=== PATIENT | female | born 1995 | race Caucasian/White ===

== ENCOUNTER 2017-01-17 08:41 | Day surgery (SDC) | payer MEDICAID ==
[~2017-01-17 08:41] MED LIST: PROPOFOL INJ 200 MG/20 ML VIAL IV ONE
[2017-01-17 11:05] VITALS: BP 112/66
--- NOTE | 2017-01-17 13:19 | Operative Report ---
Operative Report DATE OF SURGERY: 01/17/17 Operative Report: The risks, benefits and alternatives of the procedure including risks of bleeding, perforation requiring surgery are explained to the patient detail and informed consent was obtained. Patient was taken back to the endoscopy suite and placed in the left, lateral decubital position. Timeout was called. Propofol medications administered. A rectal examination is done which did not reveal any masses, tears or fissures. An Olympus videoscope was inserted into the patient's rectum. It is carefully advanced all the way to the cecum. The cecum was identified by the usual anatomical landmarks of the ileocecal valve as well as the appendiceal office. Photodocumentation is obtained. Prep is good. The scope was then sequentially pulled back via the various segments of the colon including the ascending colon, hepatic flexure, transverse colon, splenic flexure, descending colon and finding to the rectosigmoid portions of the colon. Retroflexion maneuvers performed. The risks benefits and alternatives of the procedure explained to the patient in detail and informed consent is obtained.A GIF Olympus video scope was inserted into the patient's mouth and hypopharynx, the esophagus is identified intubated and insufflated, the scope was then advanced through the esophagus stomach and duodenum, retroflexion maneuver is done, the esophagus stomach and first and second portions of the duodenum examined PREOPERATIVE DIAGNOSIS: Abdominal pain, change in bowel habits. Blood in stool POSTOPERATIVE DIAGNOSIS: Mild ileitis status post biopsy. Gastritis status post biopsy rule out Helicobacter pylori OPERATION: Colonoscopy with biopsy. EGD with biopsy SURGEON: TYLER CLAUDIO ANESTHESIA: LMAC TISSUE REMOVED OR ALTERED: As noted above. COMPLICATIONS: None. ESTIMATED BLOOD LOSS: None. INTRAOPERATIVE FINDINGS: As discussed above. PROCEDURE: Patient tolerated the procedure well. No immediate postprocedure complications are noted. Patient discharged in good condition. Discharge date 01/17/2017. Discharge diet: Regular. Discharge activity: Regular. 2-3 week follow-up to discuss findings. Patient is instructed to call the office or proceed to the emergency room should there be any further problems or questions. We will wait on pathology.
== END 2017-01-17 11:00 | disposition home or self-care (01) ==
LOC: END 08:41
PROVIDERS: ATTEND Internal Medicine Gastroenterology
PROC: 0DB68ZX Excision of Stomach, Via Natural or Artificial Opening Endoscopic, Diagnostic (ICD-10-PCS; principal; 2017-01-17 11:00)
PROC: 0DBB8ZX Excision of Ileum, Via Natural or Artificial Opening Endoscopic, Diagnostic (ICD-10-PCS; 2017-01-17 11:00)
DX: K52.9 Noninfective gastroenteritis and colitis, unspecified (principal); K29.50 Unspecified chronic gastritis without bleeding; K92.1 Melena; E66.9 Obesity, unspecified; Z68.43 Body mass index [BMI] 50.0-59.9, adult
CPT/HCPCS: 43239; 45380; 88305 ×2; J2704; 740

== ENCOUNTER 2018-06-05 11:40 | Emergency (ER) | payer MEDICAID ==
[2018-06-05] MEDS ORDERED: ONDANSETRON 4 MG TAB.RAPDIS PO ONE (14:31)
--- NOTE | 2018-06-05 14:32 | ER Document Report ---
ED Medical Screen (RME) - General Chief Complaint: Nausea Stated Complaint: NECK PAIN/NAUSEA Time Seen by Provider: 06/05/18 14:28 Primary Care Provider: DYAN CLIFTON NP [Primary Care Provider] - Follow up as needed Mode of Arrival: Ambulatory Information source: Patient Notes: 22-year-old female presented to ED for complaint of sore throat disease nausea vomiting and headache for the last several days. She states she was recently seen by her doctor and told she had an elevated TSH and started on Synthroid. She states within 2 days she was dizzy nauseated vomiting headache and sore throat. She does have a previous history of a tonsils and adenoids removed gallbladder pilonidal cyst removal. She is started on Bactrim for a abscess to her like this. She does not smoke drink or do any drugs. She does not work and she lives with her family. Patient is alert and oriented respirations regular and unlabored speaking in full sentences walks with a even steady gait. I have greeted and performed a rapid initial assessment of this patient. A comprehensive ED assessment and evaluation of the patient, analysis of test results and completion of medical decision making process will be conducted by an additional ED providers. TRAVEL OUTSIDE OF THE [place] IN LAST 30 DAYS: No - Related Data Allergies/Adverse Reactions: codeine [Codeine] Adverse Reaction (Mild, Verified 06/05/18 11:42) headaches Past Medical History - Social History Chew tobacco use (# tins/day): No Frequency of alcohol use: None Drug Abuse: None - Past Medical History Cardiac Medical History: Denies: Hx Coronary Artery Disease, Hx Heart Attack, Hx Hypertension Pulmonary Medical History: Reports: Hx Asthma Denies: Hx Bronchitis, Hx COPD, Hx Pneumonia Neurological Medical History: Denies: Hx Cerebrovascular Accident, Hx Seizures Renal/ Medical History: Denies: Hx Peritoneal Dialysis Musculoskeltal Medical History: Denies Hx Arthritis Skin Medical History: Reports Hx Cellulitis, Reports Hx MRSA Psychiatric Medical History: Reports: Hx Depression Infectious Medical History: Reports: Hx MRSA Past Surgical History: Reports: Hx Adenoidectomy, Hx Cholecystectomy, Hx Tonsillectomy - Immunizations Immunizations up to date: Yes Hx Diphtheria, Pertussis, Tetanus Vaccination: Yes Physical Exam - Vital signs Vitals: Temp Pulse Resp BP Pulse Ox 98.9 F 85 15 141/78 H 98 06/05/18 11:55 06/05/18 11:55 06/05/18 11:55 06/05/18 11:55 06/05/18 11:55 Course - Vital Signs Vital signs: Temp Pulse Resp BP Pulse Ox 98.9 F 85 15 141/78 H 98 06/05/18 11:55 06/05/18 11:55 06/05/18 11:55 06/05/18 11:55 06/05/18 11:55 Doctor's Discharge - Discharge Referrals: DYAN CLIFTON NP [Primary Care Provider] - Follow up as needed
[2018-06-05 15:40] LABS: ABSOLUTE BASOPHILS # (AUTO) 0.1 10^3/uL (0.0-0.2); ABSOLUTE EOSINOPHILS # (AUTO) 0.3 10^3/uL (0.0-0.6); ABSOLUTE MONOCYTES (AUTO) 0.4 10^3/uL (0.1-1.4); ABSOLUTE NEUT (AUTO) 4.6 10^3/uL (1.7-8.2); BASOPHILS % (AUTO) 0.8 % (0-2); EOSINOPHILS % (AUTO) 3.5 % (0-6); HEMATOCRIT 38.8 % (36.0-47.0); HEMOGLOBIN 13.4 g/dL (12.0-15.5); LYMPHOCYTES % (AUTO) 27.2 % (13-45); MEAN CORPUSCULAR HEMOGLOBIN 29.4 pg (27.0-33.4); MEAN CORPUSCULAR HGB CONC 34.4 g/dL (32.0-36.0); MEAN CORPUSCULAR VOLUME 85 fl (80-97); MONOCYTES % (AUTO) 5.1 % (3-13); PLATELET COUNT 346 10^3/uL (150-450); RED BLOOD COUNT 4.55 10^6/uL (3.72-5.28); RED CELL DISTRIBUTION WIDTH 13.8 % (11.5-14.0); SEGMENTED NEUTROPHILS % (AUTO) 63.4 % (42-78); TOTAL CELLS COUNTED % (AUTO) 100 %; WHITE BLOOD COUNT 7.3 10^3/uL (4.0-10.5)
[2018-06-05 15:59] LABS: ALANINE AMINOTRANSFERASE 21 U/L (9-52); ALBUMIN 4.8 g/dL (3.5-5.0); ALKALINE PHOSPHATASE 93 U/L (38-126); ANION GAP 12 (5-19); ASPARTATE AMINO TRANSFERASE 25 U/L (14-36); BILIRUBIN,DIRECT 0.3 mg/dL (0.0-0.4); BILIRUBIN,TOTAL 0.6 mg/dL (0.2-1.3); BLOOD UREA NITROGEN 11 mg/dL (7-20); CALCIUM 9.9 mg/dL (8.4-10.2); CARBON DIOXIDE 25 mmol/L (22-30); CHLORIDE 104 mmol/L (98-107); GLUCOSE 91 mg/dL (75-110); POTASSIUM 4.2 mmol/L (3.6-5.0); SODIUM 140.8 mmol/L (137-145); TOTAL PROTEIN 7.5 g/dL (6.3-8.2)
[2018-06-05 16:14] LABS: APPEARANCE,URINE CLOUDY; BILIRUBIN,URINE NEGATIVE (NEGATIVE); CALCIUM OXALATE CRYSTALS,URINE FEW /HPF; COLOR,URINE YELLOW; GLUCOSE, URINE NEGATIVE (NEGATIVE); KETONES,URINE TRACE mg/dL (NEGATIVE); LEUKOCYTE ESTERASE,URINE TRACE (NEGATIVE); NITRITE,URINE NEGATIVE (NEGATIVE); PROTEIN,URINE NEGATIVE (NEGATIVE); URINE SPECIFIC GRAVITY 1.026
[2018-06-05 16:21] LABS: FREE T3 3.39 pg/mL (2.77-5.27); FREE T4 (FREE THYROXINE) 1.18 ng/dL (0.78-2.19)
[2018-06-05 16:34] LABS: THYROID STIMULATING HORMONE 3.2 uIU/mL (0.47-4.68)
--- NOTE | 2018-06-05 17:03 | ER Document Report ---
ED General - General Chief Complaint: Nausea Stated Complaint: NECK PAIN/NAUSEA Time Seen by Provider: 06/05/18 14:28 Primary Care Provider: DYAN CLIFOTN, [employer] WE[employer] MACHINE OPERATOR [NURSE PRACTITIONER] - Follow up as needed Mode of Arrival: Ambulatory Information source: Patient, Parent TRAVEL OUTSIDE OF THE [place] IN LAST 30 DAYS: No - HPI Onset: Other - 22-year-old female with a history of hypothyroidism as well as bipolar disorder on multiple medications who recently started Synthroid on Tuesday stating that she felt like she was having some soreness in the throat thereafter over the last 3 days. Nothing is made it better or worse, does note some soreness in the throat. No shortness of breath, chest pain, abdominal pain, diarrhea constipation dysuria. - Related Data Allergies/Adverse Reactions: codeine [Codeine] Adverse Reaction (Mild, Verified 06/05/18 11:42) headaches Past Medical History - General Information source: Patient, Parent - Social History Smoking Status: Never Smoker Chew tobacco use (# tins/day): No Frequency of alcohol use: None Drug Abuse: None Family History: Arthritis, CAD, CVA, DM, Hyperlipidemia, Hypertension, Malignancy, Thyroid Disfunction Patient has suicidal ideation: No Patient has homicidal ideation: No - Past Medical History Cardiac Medical History: Denies: Hx Coronary Artery Disease, Hx Heart Attack, Hx Hypertension Pulmonary Medical History: Reports: Hx Asthma Denies: Hx Bronchitis, Hx COPD, Hx Pneumonia Neurological Medical History: Denies: Hx Cerebrovascular Accident, Hx Seizures Renal/ Medical History: Denies: Hx Peritoneal Dialysis Musculoskeletal Medical History: Denies Hx Arthritis Skin Medical History: Reports Hx Cellulitis, Reports Hx MRSA Psychiatric Medical History: Reports: Hx Depression Infectious Medical History: Reports: Hx MRSA Past Surgical History: Reports: Hx Adenoidectomy, Hx Cholecystectomy, Hx Tonsillectomy - Immunizations Immunizations up to date: Yes Hx Diphtheria, Pertussis, Tetanus Vaccination: Yes Review of Systems - Review of Systems -: Yes All other systems reviewed and negative Physical Exam - Vital signs Vitals: Temp Pulse Resp BP Pulse Ox 98.9 F 85 15 141/78 H 98 06/05/18 11:55 06/05/18 11:55 06/05/18 11:55 06/05/18 11:55 06/05/18 11:55 Interpretation: Normal - General General appearance: Appears well, Alert - HEENT Head: Normocephalic, Atraumatic Eyes: Normal Pupils: PERRL - Respiratory Respiratory status: No respiratory distress Chest status: Nontender Breath sounds: Normal Chest palpation: Normal - Cardiovascular Rhythm: Regular Heart sounds: Normal auscultation Murmur: No - Abdominal Inspection: Normal Distension: No distension Bowel sounds: Normal Tenderness: Nontender Organomegaly: No organomegaly - Back Back: Normal, Nontender - Extremities General upper extremity: Normal inspection, Nontender, Normal color, Normal ROM, Normal temperature General lower extremity: Normal inspection, Nontender, Normal color, Normal ROM, Normal temperature, Normal weight bearing. No: Amado's sign - Neurological Neuro grossly intact: Yes Cognition: Normal Orientation: AAOx4 [place] Coma Scale Eye Opening: Spontaneous Max Coma Scale Verbal: Oriented [place] Coma Scale Motor: Obeys Commands [place] Coma Scale Total: 15 Speech: Normal Motor strength normal: LUE, RUE, LLE, RLE Sensory: Normal - Psychological Associated symptoms: Normal affect, Normal mood - Skin Skin Temperature: Warm Skin Moisture: Dry Skin Color: Normal Course - Re-evaluation Re-evalutation: Well-appearing 22-year-old female who thought that her Synthroid may be causing issues with fullness in the throat. On examination she has shotty cervical lymphadenopathy and some erythema in the oropharynx likely she is developing an upper respiratory tract infection. Patient had labs drawn through triage which demonstrate a normal TSH and free T4. Her markers for infection are reassuring her work of breathing on room air is normal she will be discharged with return precautions and encouragement to continue to take the medication as previously prescribed. - Vital Signs Vital signs: Temp Pulse Resp BP Pulse Ox 97.9 F 80 16 129/77 H 100 06/05/18 17:34 06/05/18 17:34 06/05/18 17:34 06/05/18 17:34 06/05/18 17:34 - Laboratory Result Diagrams: 06/05/18 15:22 06/05/18 15:22 Laboratory results interpreted by me: 06/05/18 15:22 Urine Ketones TRACE H Urine Urobilinogen 2.0 H Ur Leukocyte Esterase TRACE H Discharge - Discharge Clinical Impression: Sore throat, Neck pain Condition: Good Disposition: HOME, SELF-CARE Instructions: Hypothyroidism ([facility]) Additional Instructions: Your seen today in the emergency department for your sore throat. You had evaluation including a physical exam as well as blood test. I do not believe that your sore throat is a result of the medications you are taking, I think it is likely an early viral illness. Use Tylenol and Motrin as needed for your sore throat. Continue to take your Synthroid. Contact your physician for a follow-up this week to double check how things are going with your sore throat. Return in case of worsening shortness of breath inability to breathe or worsening lightheadedness. Referrals: DYAN CLIFTON, [employer] WE[employer]ING MACHINE OPERATOR [NURSE PRACTITIONER] - Follow up as needed
[2018-06-05 17:35] VITALS: BP 129/77
== END 2018-06-05 17:34 | disposition home or self-care (01) ==
LOC: ER 11:40
DX: J02.9 Acute pharyngitis, unspecified (principal); R59.0 Localized enlarged lymph nodes; M54.2 Cervicalgia; E03.9 Hypothyroidism, unspecified; J45.909 Unspecified asthma, uncomplicated
CPT/HCPCS: 99283; 36415; 84439; 84443; 84703; 85025; 80053; 81001; 84481; S0119

== ENCOUNTER 2018-11-22 07:38 | Day surgery (SDC) | payer MEDICAID, OTHER ==
[2018-11-22] MEDS ORDERED: PROPOFOL INJ 200 MG/20 ML VIAL IV ONE (09:14)
[2018-11-22] MEDS ORDERED: LIDOCAINE 2% INJ (20 MG/ML) 20 ML MDV ONE (09:17)
--- NOTE | 2018-11-22 10:41 | Operative Report ---
Operative Report DATE OF SURGERY: 11/22/18 Operative Report: The risks benefits and alternatives of the procedure explained to the patient in detail and informed consent is obtained.A GIF Olympus video scope was inserted into the patient's mouth and hypopharynx ,the esophagus is identified intubated and insufflated, the scope was then advanced through the esophagus stomach and duodenum, retroflexion maneuver is done, the esophagus stomach and first and second portions of the duodenum examined. PREOPERATIVE DIAGNOSIS: Epigastric pain rule out peptic ulcer disease POSTOPERATIVE DIAGNOSIS: Gastritis status post biopsy rule out Helicobacter pylori OPERATION: EGD with biopsy SURGEON: TYLER CLAUDIO ANESTHESIA: LMAC TISSUE REMOVED OR ALTERED: As noted above. COMPLICATIONS: None. ESTIMATED BLOOD LOSS: None. INTRAOPERATIVE FINDINGS: As noted above. PROCEDURE: Patient tolerated the procedure well. No immediate postprocedure complications are noted. Patient is discharged in good condition. Discharge date 11/22/2018. Discharge diet: Regular. Discharge activity: Regular. 2 to 3-week follow-up to discuss findings. Patient is instructed to call the office or proceed to the emergency room should there be any further problems or questions. Wait on the pathology.
[2018-11-22 11:41] VITALS: BP 131/86
== END 2018-11-22 11:44 | disposition home or self-care (01) ==
LOC: OROUT 07:38
PROVIDERS: ATTEND Internal Medicine Gastroenterology
DX: K29.50 Unspecified chronic gastritis without bleeding (principal); Z13.89 Encounter for screening for other disorder; E78.5 Hyperlipidemia, unspecified; E66.9 Obesity, unspecified; Z68.43 Body mass index [BMI] 50.0-59.9, adult
CPT/HCPCS: 43239; 81025; 88305 ×2; 00731; J3490; J2704; 731

== ENCOUNTER 2019-01-18 09:19 | Emergency (ER) | payer OTHER ==
[2019-01-18 10:15] LABS: APPEARANCE,URINE SLIGHTLY-CLOUDY; BILIRUBIN,URINE NEGATIVE (NEGATIVE); GLUCOSE, URINE NEGATIVE (NEGATIVE); KETONES,URINE TRACE mg/dL (NEGATIVE); LEUKOCYTE ESTERASE,URINE NEGATIVE (NEGATIVE); NITRITE,URINE NEGATIVE (NEGATIVE); PROTEIN,URINE 30 mg/dL (NEGATIVE); URINE SPECIFIC GRAVITY 1.033
[2019-01-18 10:41] LABS: ADD MANUAL MICROSCOPIC YES
[2019-01-18 10:42] LABS: COLOR,URINE YELLOW
[2019-01-18 10:43] LABS: BACTERIA,URINE 1+ /HPF; RBC,URINE 0-1 /HPF
[2019-01-18] MEDS ORDERED: AZITHROMYCIN 250 MG TABLET PO ONE (11:07)
[2019-01-18] MEDS ORDERED: CEFTRIAXONE INJ 250 MG VIAL IM ONE (11:07)
--- NOTE | 2019-01-18 11:10 | RADIOLOGY REPORT (SQ) ---
EXAM DESCRIPTION: U/S NON OB PEL TV W/DOPPLER COMPLETED DATE/TIME: 01/18/2019 10:52 am REASON FOR STUDY: BL pelvic pain COMPARISON: None. TECHNIQUE: Dynamic and static grayscale images acquired of the pelvis via transvaginal approach and recorded on PACS. Additional selected color Doppler and spectral images recorded. LIMITATIONS: None. FINDINGS: UTERUS: Contour normal. No mass. ENDOMETRIAL STRIPE: No focal or generalized thickening. No masses. CERVIX: No nabothian cysts. RIGHT OVARY AND DOPPLER: Normal size. No worrisome masses. Multiple small follicles. Normal arteria l vascular flow without evidence for torsion. LEFT OVARY AND DOPPLER: Normal size. No worrisome masses. Multiple small follicles. Normal arterial vascular flow without evidence for torsion. FREE FLUID: None noted. OTHER: No other significant finding. MEASUREMENTS: UTERUS: 5.7 x 3.6 x 2.5 cm ENDOMETRIAL STRIPE: 5 mm RIGHT OVARY: 2.8 x 2.7 x 2.5 cm LEFT OVARY: 2.4 x 1.9 x 2.7 cm IMPRESSION: No ultrasound findings of the pelvis to explain pain. There are multiple small bilatera l ovarian follicles. Consider CT or MRI to further evaluate unexplained pain. TECHNICAL DOCUMENTATION: JOB ID: [id number] [employer]- All Rights Reserved Reading location - IP/workstation name: [email or web address]
--- NOTE | 2019-01-18 11:10 | ER Document Report ---
ED General - General Chief Complaint: Vaginal Discharge Stated Complaint: VAGINAL DISCHARGE,ABDOMINAL PAIN Time Seen by Provider: 01/18/19 09:53 Primary Care Provider: KRISSY VENTURA MD [Primary Care Provider] - Follow up as needed Notes: Patient is a morbidly obese 23-year-old female presents to the emergency department for vaginal discharge. States she noticed a grayish vaginal discharge starting last night. Patient's denying any itch or malodor. Patient is complaining of bilateral lower pelvic pain. Patient's denying any vomiting, fevers, dysuria. States her last menstrual period was 01/08/2019. TRAVEL OUTSIDE OF THE [place] IN LAST 30 DAYS: No - Related Data Allergies/Adverse Reactions: codeine [Codeine] Adverse Reaction (Mild, Verified 01/18/19 09:21) headaches Past Medical History - General Information source: Patient - Social History Smoking Status: Never Smoker Chew tobacco use (# tins/day): No Frequency of alcohol use: None Drug Abuse: None Family History: Arthritis, CAD, CVA, DM, Hyperlipidemia, Hypertension, Malignancy, Thyroid Disfunction Patient has suicidal ideation: No Patient has homicidal ideation: No - Past Medical History Cardiac Medical History: Denies: Hx Coronary Artery Disease, Hx Heart Attack, Hx Hypertension Pulmonary Medical History: Reports: Hx Asthma Denies: Hx Bronchitis, Hx COPD, Hx Pneumonia Neurological Medical History: Denies: Hx Cerebrovascular Accident, Hx Seizures Renal/ Medical History: Denies: Hx Peritoneal Dialysis Musculoskeletal Medical History: Denies Hx Arthritis Skin Medical History: Reports Hx Cellulitis, Reports Hx MRSA Psychiatric Medical History: Reports: Hx Depression Infectious Medical History: Reports: Hx MRSA Past Surgical History: Reports: Hx Adenoidectomy, Hx Cholecystectomy, Hx Tonsillectomy - &adenoids - Immunizations Immunizations up to date: Yes Hx Diphtheria, Pertussis, Tetanus Vaccination: Yes Review of Systems - Review of Systems Constitutional: denies: Fever EENT: No symptoms reported Cardiovascular: No symptoms reported Respiratory: No symptoms reported Gastrointestinal: See HPI Genitourinary: See HPI Female Genitourinary: See HPI Musculoskeletal: No symptoms reported Skin: No symptoms reported Hematologic/Lymphatic: No symptoms reported Neurological/Psychological: No symptoms reported Physical Exam - Vital signs Vitals: Temp Pulse Resp BP Pulse Ox 97.7 F 101 H 20 130/78 H 100 01/18/19 09:23 01/18/19 09:23 01/18/19 09:23 01/18/19 09:23 01/18/19 09:23 - Notes Notes: GENERAL: Alert, interacts well. No acute distress. HEAD: Normocephalic, atraumatic. EYES: Pupils equal, round, and reactive to light. Extraocular movements intact. ENT: Oral mucosa moist, tongue midline. NECK: Full range of motion. Supple. Trachea midline. LUNGS: Clear to auscultation bilaterally, no wheezes, rales, or rhonchi. No respiratory distress. HEART: Regular rate and rhythm. No murmur ABDOMEN: Soft, slight pelvic pain noted bilaterally. non-distended. Bowel sounds present in all 4 quadrants. EXTREMITIES: Moves all 4 extremities spontaneously. No edema, normal radial and dorsalis pedis pulses bilaterally. No cyanosis. BACK: no cervical, thoracic, lumbar midline tenderness. No saddle anesthesia, normal distal neurovascular exam. NEUROLOGICAL: Alert and oriented x3. Normal speech. cranial nerves II through XII grossly intact. PSYCH: Normal affect, normal mood. SKIN: Warm, dry, normal turgor. No rashes or lesions noted. Genitalia: Benjamin PCT tax manager cpa, malodorous white discharge noted in the cul-de-sac, no cervical motion tenderness noted, no adnexal tenderness noted bilaterally. Course - Re-evaluation Re-evalutation: 01/18/19 12:54 Laboratory 01/18/19 01/18/19 01/18/19 09:54 09:54 11:05 Urine Color YELLOW Urine Appearance SLIGHTLY-CLOUDY Urine pH 5.0 Ur Specific [place] 1.033 Urine Protein 30 H Urine Glucose (UA) NEGATIVE Urine Ketones TRACE H Urine Blood NEGATIVE Urine Nitrite NEGATIVE Urine Bilirubin NEGATIVE Urine Urobilinogen 2.0 H Ur Leukocyte Esterase NEGATIVE Urine RBC 0-1 Urine WBC 10-20 Ur Squamous Epith Cells MANY Urine Bacteria 1+ Urine Mucus 4+ Urine Ascorbic Acid NEGATIVE Urine HCG, Qual NEGATIVE Trichomonas (Wet Prep) NO TRICHOMONAS SEEN Vaginal WBC 2+ WBCS SEEN Vaginal RBC RARE RBCS SEEN Vaginal Yeast NO YEAST SEEN Patient's wet mount shows no signs of yeast, no signs of bacterial vaginosis, no signs of trichomonas. Only 2+ WBCs seen. Patient has been treated for gonorrhea and chlamydia prophylactically. Testing results still pending. At this time will discharge with return precautions and follow-up recommendations. Verbal discharge instructions given a the bedside and opportunity for questions given. Medication warnings reviewed. Patient is in agreement with this plan and has verbalized understanding of return precautions and the need for primary care follow-up in the next 24-72 hours. This medical record was dictated with voice recognizing software. There may be grammatical, syntax errors that are unintended. - Vital Signs Vital signs: Temp Pulse Resp BP Pulse Ox 97.7 F 101 H 20 130/78 H 100 01/18/19 09:23 01/18/19 09:23 01/18/19 09:23 01/18/19 09:23 01/18/19 09:23 - Laboratory Laboratory results interpreted by me: 01/18/19 09:54 Urine Protein 30 H Urine Ketones TRACE H Urine Urobilinogen 2.0 H Discharge - Discharge Clinical Impression: Vaginal discharge Condition: Stable Disposition: HOME, SELF-CARE Instructions: Gonorrhea ([facility]), Chlamydia ([facility]) Additional Instructions: As we discussed you have been seen and treated in the emergency department for your vaginal discharge. Your gonorrhea and Chlamydia testing is still pending. Please call [phone] for your culture results. You have been prophylactically treated for both diseases. Your wet mount shows no signs of bacterial vaginosis or yeast. Please follow-up with your primary care provider in the next 24 to 48 hours. Return to the emergency room for any further concerns. Forms: Return to Work Referrals: KRISSY VENTURA MD [Primary Care Provider] - Follow up as needed
[2019-01-18] MEDS ORDERED: LIDOCAINE 1% INJ-PF (10 MG/ML) 30 ML SDV ONE (11:30)
[2019-01-18 11:44] LABS: RBCS (WET MOUNT) RARE RBCS SEEN; T.VAGINALIS (WET MOUNT) NO TRICHOMONAS SEEN; WBCS (WET MOUNT) 2+ WBCS SEEN; YEAST (WET MOUNT) NO YEAST SEEN
[2019-01-18 13:14] VITALS: BP 128/75
[2019-01-18 13:15] LABS: CHLAM PCR NOT DETECTED (NOT DETECT)
== END 2019-01-18 13:13 | disposition home or self-care (01) ==
LOC: ER 09:19
DX: N89.8 Other specified noninflammatory disorders of vagina (principal); E66.01 Morbid (severe) obesity due to excess calories; R10.30 Lower abdominal pain, unspecified; R10.2 Pelvic and perineal pain; Z86.14 Personal history of Methicillin resistant Staphylococcus aureus infection; Z88.6 Allergy status to analgesic agent; Z90.49 Acquired absence of other specified parts of digestive tract
CPT/HCPCS: 99284; 96372; 87086; 87210; 81025; 81001; 87491; 87591; 76830; 93976; J3490; J0696

== ENCOUNTER 2019-02-22 00:44 | Emergency (ER) | payer OTHER ==
[2019-02-22 00:53] VITALS: BP 142/88
[2019-02-22] MEDS ORDERED: ONDANSETRON 4 MG TAB.RAPDIS PO ONE (01:40)
[2019-02-22 01:55] LABS: ABSOLUTE BASOPHILS # (AUTO) 0.1 10^3/uL (0.0-0.2); ABSOLUTE EOSINOPHILS # (AUTO) 0.2 10^3/uL (0.0-0.6); ABSOLUTE LYMPHOCYTES (AUTO) 3.9 10^3/uL (0.5-4.7); ABSOLUTE MONOCYTES (AUTO) 0.4 10^3/uL (0.1-1.4); BASOPHILS % (AUTO) 0.6 % (0-2); EOSINOPHILS % (AUTO) 1.7 % (0-6); HEMATOCRIT 38.9 % (36.0-47.0); HEMOGLOBIN 13.1 g/dL (12.0-15.5); LYMPHOCYTES % (AUTO) 37.2 % (13-45); MEAN CORPUSCULAR HEMOGLOBIN 29.8 pg (27.0-33.4); MEAN CORPUSCULAR HGB CONC 33.6 g/dL (32.0-36.0); MEAN CORPUSCULAR VOLUME 89 fl (80-97); MONOCYTES % (AUTO) 4.1 % (3-13); PLATELET COUNT 370 10^3/uL (150-450); RED CELL DISTRIBUTION WIDTH 12.6 % (11.5-14.0); SEGMENTED NEUTROPHILS % (AUTO) 56.4 % (42-78); TOTAL CELLS COUNTED % (AUTO) 100 %; WHITE BLOOD COUNT 10.6 10^3/uL (4.0-10.5)
[2019-02-22 02:18] LABS: ALBUMIN 4.4 g/dL (3.5-5.0); ALKALINE PHOSPHATASE 72 U/L (38-126); ANION GAP 10 (5-19); ASPARTATE AMINO TRANSFERASE 19 U/L (14-36); BILIRUBIN,DIRECT 0.2 mg/dL (0.0-0.4); BILIRUBIN,TOTAL 0.5 mg/dL (0.2-1.3); BLOOD UREA NITROGEN 13 mg/dL (7-20); CARBON DIOXIDE 25 mmol/L (22-30); CHLORIDE 106 mmol/L (98-107); CREATINE KINASE 42 U/L (30-135); GLUCOSE 93 mg/dL (75-110); POTASSIUM 4.2 mmol/L (3.6-5.0); TOTAL PROTEIN 7.1 g/dL (6.3-8.2)
[2019-02-22 02:24] LABS: APPEARANCE,URINE SLIGHTLY-CLOUDY; BILIRUBIN,URINE NEGATIVE (NEGATIVE); COLOR,URINE YELLOW; GLUCOSE, URINE NEGATIVE (NEGATIVE); KETONES,URINE NEGATIVE (NEGATIVE); LEUKOCYTE ESTERASE,URINE NEGATIVE (NEGATIVE); NITRITE,URINE NEGATIVE (NEGATIVE); PROTEIN,URINE NEGATIVE (NEGATIVE); URINE SPECIFIC GRAVITY 1.023; UROBILINOGEN,URINE NEGATIVE mg/dL (<2.0)
--- NOTE | 2019-02-22 02:25 | ER Document Report ---
Entered by KYLER CABRERA SCRIBE 02/22/19 0148 Acting as scribe for:JODIE COTTON MD ED GI/ - General Chief Complaint: Abdominal Pain Stated Complaint: SHORT OF BREATH Time Seen by Provider: 02/22/19 01:27 Primary Care Provider: KRISSY VENTURA MD [Primary Care Provider] - Follow up as needed Mode of Arrival: Ambulatory Information source: Patient Notes: Patient is a 23-year-old female that presents to the emergency department today with complaints of abdominal pain that began 2 to 3 hours prior to arrival. Patient states she has been nauseated all day but the pain started just prior to arrival. Patient states her last menstrual period was about 2 weeks ago. Patient states she has been having normal bowel movements the last few days, stating she had a normal one tonight prior to arrival. Patient denies any fevers. TRAVEL OUTSIDE OF THE [place] IN LAST 30 DAYS: No - Related Data Allergies/Adverse Reactions: codeine [Codeine] Adverse Reaction (Mild, Verified 01/18/19 09:21) headaches Past Medical History - General Information source: Patient - Social History Smoking Status: Never Smoker Cigarette use (# per day): No Frequency of alcohol use: None Drug Abuse: None Lives with: Family Family History: Reviewed & Not Pertinent, Arthritis, CAD, CVA, DM, Hyperlipidemia, Hypertension, Malignancy, Thyroid Disfunction Patient has suicidal ideation: No Patient has homicidal ideation: No Pulmonary Medical History: Reports: Hx Asthma Endocrine Medical History: Reports: Hx Hypothyroidism Skin Medical History: Reports Hx Cellulitis, Reports Hx MRSA Psychiatric Medical History: Reports: Hx Depression Infectious Medical History: Reports: Hx MRSA Past Surgical History: Reports: Hx Adenoidectomy, Hx Cholecystectomy, Hx To nsillectomy - Immunizations Immunizations up to date: Yes Hx Diphtheria, Pertussis, Tetanus Vaccination: Yes Review of Systems - Review of Systems Constitutional: denies: Fever EENT: No symptoms reported Cardiovascular: No symptoms reported Respiratory: No symptoms reported Gastrointestinal: See HPI, Abdominal pain, Nausea Genitourinary: No symptoms reported Female Genitourinary: No symptoms reported Musculoskeletal: No symptoms reported Skin: No symptoms reported Hematologic/Lymphatic: No symptoms reported Neurological/Psychological: No symptoms reported -: Yes All other systems reviewed and negative Physical Exam - Vital signs Vitals: Temp Pulse Resp BP Pulse Ox 98 F 90 18 142/88 H 100 02/22/19 00:49 02/22/19 00:49 02/22/19 00:49 02/22/19 00:49 02/22/19 00:49 - Notes Notes: Physical Exam: General: Alert, morbidly obese. HEENT: Normocephalic. Atraumatic. PERRL. Extraocular movements intact. Oropharynx clear. Neck: Supple. Non-tender. Respiratory: No respiratory distress. Clear and equal breath sounds bilaterally. Cardiovascular: Regular rate and rhythm. Abdominal: Morbidly obese. Diffuse generalized tenderness to palpation. Incr eased tenderness when abdominal muscles are tensed. No distension. Normal Bowel Sounds. Back: No gross abnormalities. Tenderness with palpation in the lumbar musculature. Extremities: Moves all four extremities. Upper extremities: Normal inspection. Normal ROM. Lower extremities: Normal inspection. No edema. Normal ROM. Neurological: Normal cognition. AAOx4. Normal speech. Psychological: Normal affect. Normal Mood. Skin: Warm. Dry. Normal color. Course - Re-evaluation Re-evalutation: 02/22/19 02:27 Patient's CBC, Chem-12, and urinalysis are all unremarkable. Physical exam is most consistent with muscle strain to the abdominal wall and the low back. - Vital Signs Vital signs: Temp Pulse Resp BP Pulse Ox 98 F 90 18 142/88 H 100 02/22/19 00:49 02/22/19 00:49 02/22/19 00:49 02/22/19 00:49 02/22/19 00:49 - Laboratory Result Diagrams: 02/22/19 01:35 02/22/19 01:35 Laboratory results interpreted by me: 02/22/19 01:35 WBC 10.6 H Discharge - Discharge Clinical Impression: Strain of abdominal muscle Qualifiers: Encounter type: initial encounter Qualified Code(s): S39.011A - Strain of muscle, fascia and tendon of abdomen, initial encounter Strain of lumbar paraspinous muscle Qualifiers: Encounter type: initial encounter Qualified Code(s): S39.012A - Strain of muscle, fascia and tendon of lower back, initial encounter Condition: Stable Disposition: HOME, SELF-CARE Additional Instructions: Muscle Strain: You have strained the muscles in your abdominal wall and low back. This often occurs with strenuous exertion, or during an injury that suddenly stretches the muscle. The seriousness of a strain varies. Some strains heal within days, others cause problems for months. X-rays cannot show a muscle strain. X-rays are taken only if symptoms suggest that a fracture could be present. The usual treatment of a muscle strain is rest. Call the doctor immediately if pain or swelling becomes severe, or if numbness or discoloration develop. Your blood work and urine analysis were unremarkable. The physical exam is most consistent with strain of the muscles in your low back and your abdominal muscle wall. Take the muscle relaxer as prescribed to help ease the discomfort in the abdomen and back muscles. Take Tylenol and ibuprofen or Aleve for pain as needed. Try to limit activity that makes the pain worse. Follow-up with your primary care provider if not improving. RETURN TO THE EMERGENCY ROOM IF ANY NEW OR WORSENING SYMPTOMS. Prescriptions: Cyclobenzaprine HCl [Flexeril 5 mg Tablet] 5 mg PO TID PRN #15 tablet PRN Reason: Forms: Return to Work Referrals: KRISSY VENTURA MD [Primary Care Provider] - Follow up as needed Scribe Attestation: 02/22/19 02:28 I personally performed the services described in the documentation, reviewed and edited the documentation which was dictated to the scribe in my presence, and it accurately records my words and actions. I personally performed the services described in the documentation, reviewed and edited the documentation which was dictated to the scribe in my presence, and it accurately records my words and actions.
[2019-02-22] MEDS ORDERED: CYCLOBENZAPRINE HCL 10 MG TABLET PO ONE (02:44)
[2019-02-22] MEDS ORDERED: NAPROXEN 250 MG TABLET PO ONE ×2 (02:44→03:00)
== END 2019-02-22 03:08 | disposition home or self-care (01) ==
LOC: ER 00:44
DX: S39.011A Strain of muscle, fascia and tendon of abdomen, initial encounter (principal); S39.012A Strain of muscle, fascia and tendon of lower back, initial encounter; X58.XXXA Exposure to other specified factors, initial encounter; R10.9 Unspecified abdominal pain; R10.817 Generalized abdominal tenderness; R11.0 Nausea; E66.01 Morbid (severe) obesity due to excess calories; J45.909 Unspecified asthma, uncomplicated; Z90.49 Acquired absence of other specified parts of digestive tract
CPT/HCPCS: 36415; 82550; 84703; 85025; 80053; 81001; S0119; 99284

== ENCOUNTER 2019-02-22 21:24 | Emergency (ER) | payer OTHER ==
--- NOTE | 2019-02-22 22:24 | ER Document Report ---
ED Medical Screen (RME) - General Chief Complaint: Flank Pain Stated Complaint: RIGHT FLANK PAIN Time Seen by Provider: 02/22/19 22:21 Primary Care Provider: KRISSY VENTURA MD [Primary Care Provider] - Follow up as needed Mode of Arrival: Ambulatory Information source: Patient Notes: 23-year-old female presented to ED for complaint of abdominal pain. She states she was seen this morning for abdominal pain and now it is going on the right abdomen around to the right back mostly on the right flank area. She states that she had blood work and a urine test this morning and was told that it was muscle pain and she was discharged home. She states the pain is worse and is more around to the right back at this time. She states her last menstrual period was beginning of February. She states she was vomiting this morning before she came in. She states she is taken that medication and she is taking Synthroid for hypothyroid. She denies smoking drinking or use of drugs. She is alert oriented respirations regular and unlabored. I have greeted and performed a rapid initial assessment of this patient. A comprehensive ED assessment and evaluation of the patient, analysis of test results and completion of medical decision making process will be conducted by an additional ED providers. TRAVEL OUTSIDE OF THE [place] IN LAST 30 DAYS: No - Related Data Allergies/Adverse Reactions: codeine [Codeine] Adverse Reaction (Mild, Verified 01/18/19 09:21) headaches Past Medical History - Past Medical History Cardiac Medical History: Denies: Hx Coronary Artery Disease, Hx Heart Attack, Hx Hypertension Pulmonary Medical History: Reports: Hx Asthma Denies: Hx Bronchitis, Hx COPD, Hx Pneumonia Neurological Medical History: Denies: Hx Cerebrovascular Accident, Hx Seizures Endocrine Medical History: Reports: Hx Hypothyroidism Renal/ Medical History: Denies: Hx Peritoneal Dialysis Musculoskeltal Medical History: Denies Hx Arthritis Skin Medical History: Reports Hx Cellulitis, Reports Hx MRSA Psychiatric Medical History: Reports: Hx Depression Infectious Medical History: Reports: Hx MRSA Past Surgical History: Reports: Hx Adenoidectomy, Hx Cholecystectomy, Hx Tonsillectomy - Immunizations Immunizations up to date: Yes Hx Diphtheria, Pertussis, Tetanus Vaccination: Yes Physical Exam - Vital signs Vitals: Temp Pulse Resp BP Pulse Ox 97.4 F 91 20 139/91 H 100 02/22/19 22:16 02/22/19 22:16 02/22/19 22:16 02/22/19 22:16 02/22/19 22:16 Course - Vital Signs Vital signs: Temp Pulse Resp BP Pulse Ox 97.4 F 91 20 139/91 H 100 02/22/19 22:16 02/22/19 22:16 02/22/19 22:16 02/22/19 22:16 02/22/19 22:16 Doctor's Discharge - Discharge Referrals: KRISSY VENTURA MD [Primary Care Provider] - Follow up as needed
--- NOTE | 2019-02-22 23:07 | RADIOLOGY REPORT (SQ) ---
EXAM DESCRIPTION: CT ABDOMEN PELVIS WITHOUT IV CONTRAST COMPLETED DATE/TME: 02/22/2019 22:24 CLINICAL HISTORY: 23 years, Female, Right abdominal/flank pain COMPARISON: 12/21/2014 CT TECHNIQUE: 359 Images stored on PACS. All CT scanners at this facility use dose modulation, iterative reconstruction, and/or weight based dosing when appropriate to reduce radiation dose to as low as reasonably achievable (ALARA). [facility]: Dose Right [facility]: CareDose [facility]: Dose Right [facility]: Teradose 4D [facility]: [employer] LIMITATIONS: None. FINDINGS: Visualized lung bases are unremarkable. Osseous structures are grossly intact. Limited evaluation of the liver is unremarkable. The spleen is mildly enlarged at 13 cm. Status post cholecystectomy. The adrenal glands, pancreas, kidneys are unremarkable. Normal appendix. Abundant stool in the colon. No free air or free fluid. Follicular change to the ovaries IMPRESSION: Mild splenomegaly at 13 cm. Abundant stool in the colon TECHNICAL DOCUMENTATION: Quality ID # [id number]: Final reports with documentation of one or more dose reduction techniques (e.g., Automated exposure control, adjustment of the mA and/or kV according to patient size, use of iterative reconstruction technique) copyright 2010 [employer]- All Rights Reserved
[2019-02-23] MEDS ORDERED: KETOROLAC TROMETHAMINE INJ/PF 30 MG/1 ML SDV IV ONE (01:50)
--- NOTE | 2019-02-23 02:17 | ER Document Report ---
ED GI/ - General Chief Complaint: Flank Pain Stated Complaint: RIGHT FLANK PAIN Time Seen by Provider: 02/22/19 22:21 Primary Care Provider: KRISSY VENTURA MD [Primary Care Provider] - Follow up as needed Mode of Arrival: Ambulatory Information source: Patient, Parent TRAVEL OUTSIDE OF THE [place] IN LAST 30 DAYS: No - HPI Patient complains to provider of: Flank pain. No: Abdominal pain, Diarrhea, Dysuria, Feeding tube problem, Cowart catheter problem, Hematuria, Missed/Late menses, Pelvic pain, , Urinary retention, Vaginal bleeding, Vaginal discharge, Vaginal pain, Vomiting, Other Onset: Yesterday Timing/Duration: Gradual. denies: Sudden, Constant, Intermittent, Persistent, Waxing and waning, Better, Worse, Gone Quality of pain: Achy. denies: No pain, Burning, Cramping, Dull, Fullness, Pressure, Sharp, Stabbing, Throbbing, Other Severity at maximum: Moderate Severity in ED: Mild Pain Level: 1 Context: denies: Bad food, Lifting, Out of the country travel, , Recent trauma, Other Location: Right flank. No: Chest pain, Epigastric, LUQ, LLQ, RUQ, RLQ, Left flank, Low back, Suprapubic, Pelvis, Vaginal, Vulvar, Rectal, Other Vaginal bleeding (Compared to normal period): None. denies: Spotting, [employer], Similar, Heavier, Severe, Bright red, Dark brown, Passing clots, Passing tissue Sexual history: denies: Active, Inactive, New partner, Multiple partners, Unprotected intercourse, Rectal penetration, STD exposure, control patch, control pills, Condoms, Depo, IUD Associated symptoms: denies: None, Blood in emesis, Blood in stool, Chest pain, Chills, Coffee ground emesis, Constipation, Diarrhea, Dizzy, Dysuria, Fever, Hard stool, Hematuria, Hurts to breath, Inguinal mass, Lightheaded, Loss of appetite, Nausea, Odor, Painful intercourse, Radiates to back, Radiates to chest, Radiates to vagina, Radiates to shoulder, Shortness of breath, Sweaty, Syncope, Urinary hesitancy, Urinary frequency, Urinary retention, Urinary urgency, Vaginal discharge, Vomiting, Other Exacerbated by: denies: Denies, Supine, Sitting, Standing, Movement, Walking, Coughing, Deep breathing, Food, Other Notes: 02/23/19 02:12 Note patient was seen yesterday for right flank pain at that time labs were all negative including hCG urine it was thought to be contaminated. Tonight patient was complaining of the right same right flank pain especially with movement of her right flank. CT was obtained which showed an enlarged spleen on the left side however otherwise negative. I discussed this with her mom and that she needs to get follow-up for this with her regular doctor a repeat CAT scan in 2 to 3months as she has no pain there now or none in the abdomen I feel like this is probably chronic. - Related Data Allergies/Adverse Reactions: codeine [Codeine] Adverse Reaction (Mild, Verified 01/18/19 09:21) headaches Home Medications: Synthroid. Phentramine Past Medical History - General Information source: Patient - Social History Smoking Status: Never Smoker Family History: Reviewed & Not Pertinent, Arthritis, CAD, CVA, DM, Hyperlipidemia, Hypertension, Malignancy, Thyroid Disfunction Patient has suicidal ideation: No Patient has homicidal ideation: No - Past Medical History Cardiac Medical History: Denies: Hx Coronary Artery Disease, Hx Heart Attack, Hx Hypertension Pulmonary Medical History: Reports: Hx Asthma Denies: Hx Bronchitis, Hx COPD, Hx Pneumonia Neurological Medical History: Denies: Hx Cerebrovascular Accident, Hx Seizures Endocrine Medical History: Reports: Hx Hypothyroidism Renal/ Medical History: Denies: Hx Peritoneal Dialysis Musculoskeletal Medical History: Denies Hx Arthritis Skin Medical History: Reports Hx Cellulitis, Reports Hx MRSA Psychiatric Medical History: Reports: Hx Depression Infectious Medical History: Reports: Hx MRSA Past Surgical History: Reports: Hx Adenoidectomy, Hx Cholecystectomy, Hx Tonsill ectomy - Immunizations Immunizations up to date: Yes Hx Diphtheria, Pertussis, Tetanus Vaccination: Yes Review of Systems - Review of Systems Constitutional: denies: No symptoms reported, See HPI, Chills, Diaphoresis, Fever, Malaise, Weakness, Other, Weight gain, Weight loss, Recent illness Cardiovascular: denies: No symptoms reported, See HPI, Chest pain, Palpitations, Heart racing, Orthopnea, Dyspnea, Syncope, Dizziness, Lightheaded, Edema, Other, Paroxysmal Nocturnal Dysp Genitourinary: Flank pain. denies: No symptoms reported, See HPI, Burning, Dysuria, Discharge, Frequency, Hematuria, Incontinence, Pain, Urgency, Retention, Other Female Genitourinary: denies: No symptoms reported, See HPI, Last menstrual period, , Post menopausal, Heavy/abnormal periods, Irregular period, Vaginal bleeding, Vaginal discharge, Vaginal odor, Painful intercourse, Other -: Yes All other systems reviewed and negative Physical Exam - Vital signs Vitals: Temp Pulse Resp BP Pulse Ox 97.4 F 91 20 139/91 H 100 02/22/19 22:16 02/22/19 22:16 02/22/19 22:16 02/22/19 22:16 02/22/19 22:16 Notes: PHYSICAL EXAMINATION: GENERAL: Well-appearing, well-nourished and in no acute distress. HEAD: Atraumatic, normocephalic. EYES: Pupils equal round and reactive to light, extraocular movements intact, sclera anicteric, conjunctiva are normal. ENT: nares patent, oropharynx clear without exudates. Moist mucous membranes. NECK: Normal range of motion, supple without lymphadenopathy LUNGS: Breath sounds clear to auscultation bilaterally and equal. No wheezes rales or rhonchi. HEART: Regular rate and rhythm without murmurs ABDOMEN: Soft, nontender, normoactive bowel sounds. No guarding, no rebound. No masses appreciated. Back right sided lateral to the CVA area tenderness especially when patient moves her trunk. Distinct CVA tenderness right or left EXTREMITIES: Normal range of motion, no pitting or edema. No cyanosis. NEUROLOGICAL: No focal neurological deficits. Moves all extremities spontaneously and on command. PSYCH: Normal mood, normal affect. SKIN: Warm, Dry, normal turgor, no rashes or lesions noted. Course - Vital Signs Vital signs: Temp Pulse Resp BP Pulse Ox 97.4 F 91 20 139/91 H 100 02/22/19 22:16 02/22/19 22:16 02/22/19 22:16 02/22/19 22:16 02/22/19 22:16 - Laboratory Laboratory results interpreted by me: 02/23/19 02:14 Lab results from less than 24 hours ago were reviewed I discussed with patient and mother that repeating these at this time without fever did not feel they were necessary however I offered them to them they declined. - Diagnostic Test Radiology reviewed: Image reviewed, Reports reviewed - EKG Interpretation by Me EKG shows normal: Sinus rhythm Rate: Normal Discharge - Discharge Clinical Impression: Right flank pain Condition: Good Disposition: HOME, SELF-CARE Instructions: Abdominal Pain ([facility]), Oral Narcotic Medication ([facility]) Additional Instructions: Return if you are worse take your Flexeril for spasms Prescriptions: Hydrocodone/Acetaminophen [[place] 5-325 Tablet] 1 each PO Q6 PRN #10 tablet PRN Reason: Pain Scale Of 3 Referrals: KRISSY VENTURA MD [Primary Care Provider] - Follow up as needed
[2019-02-23 04:11] VITALS: BP 126/62
--- NOTE | 2019-02-23 07:23 | EKG REPORT ---
SEVERITY:- NORMAL ECG - SINUS RHYTHM : Confirmed by: Xavier Lima 23-Feb-2019 07:21:30
== END 2019-02-23 04:00 | disposition home or self-care (01) ==
LOC: ER 21:24
DX: R10.9 Unspecified abdominal pain (principal); J45.909 Unspecified asthma, uncomplicated
CPT/HCPCS: 74176; 93005; 93010; J1885

== ENCOUNTER → 2019-12-01 | Outpatient (CLI) | payer BC ==
--- NOTE | 2019-12-01 14:04 | RADIOLOGY REPORT (SQ) ---
EXAM DESCRIPTION: KNEE LEFT 3 VIEWS IMAGES COMPLETED DATE/TIME: 12/01/2019 1:19 pm REASON FOR STUDY: PAIN IN LEFT KNEE COMPARISON: None. NUMBER OF VIEWS: Three views left knee. LIMITATIONS: None. FINDINGS: There is no acute or significant bone, joint or soft tissue abnormality. OTHER: No other significant finding. IMPRESSION: NORMAL STUDY. TECHNICAL DOCUMENTATION: JOB ID: [id number] Reading location - IP/workstation name: [email or web address]
== END ==
LOC: RAD 12:57
PROVIDERS: ATTEND Nurse Practitioner Family
DX: M25.562 Pain in left knee (principal)

== ENCOUNTER 2020-01-08 20:47 | Emergency (ER) | payer BC ==
[2020-01-08] MEDS ORDERED: DIPH/PERTUSS(ACELL)/TETANUS VAC/PF 0.5 ML SYR (>=10YO) IM ONE (21:40)
--- NOTE | 2020-01-08 21:47 | ER Document Report ---
HPI - HPI Time Seen by Provider: 01/08/20 21:35 Pain Level: 4 Notes: 24-year-old female presents to the emergency room via EMS after walking on an oyster beds while she was in the ocean today. Unsure of her last tetanus. States her last menstrual cycle was around December 03, 2019 she is on control. Patient states she accidentally walked on oyster beds, called EMS where they cleaned up the wounds and brought her to the emergency room. Pain is 2 out of 5, throbbing achy. No [id number] medications have been tried. Denies any other issues. Denies fevers, chills, chest pain,palpitations, shortness of breath, dyspnea, nausea, vomiting, diarrhea, abdominal pain, hematuria,blurred vision, double vision, loss of vision, speech changes, LH, dizziness, syncope, headaches, wheezing, ST, URI, neck pain, weakness, bowel or bladder dysfunction, saddle anesthesia, numbness or tingling in bilateral upper or lower extremities equally, muscle paralysis, weakness in bilateral upper or lower extremities equally or rash. Denies IV drug use. MEDICATIONS: I agree with the patient medications as charted by the RN. ALLERGIES: I agree with the allergies as charted by the RN. PAST MEDICAL HISTORY/PAST SURGICAL HISTORY: Reviewed and agree as charted by RN. SOCIAL HISTORY: Reviewed and agree as charted by RN. FAMILY HISTORY: No significant familial comorbid conditions directly related to patient complaint EXAM: Reviewed vital signs as charted by RN. REVIEW OF SYSTEMS:reviewed vital signs by RN CONSTITUTIONAL : Denies fever, chills, or sweats. Denies recent illness. EENT: Denies eye, ear, throat, or mouth pain or symptoms. Denies nasal or s inus congestion or discharge. Denies throat, tongue, or mouth swelling or difficulty swallowing. CARDIOVASCULAR: Denies chest pain. Denies palpitations or racing or irregular heart beat. Denies ankle edema. RESPIRATORY: Denies cough, cold, or chest congestion. Denies shortness of breath, difficulty breathing, or wheezing. GASTROINTESTINAL: Denies abdominal pain or distention. Denies nausea, vomiting, or diarrhea. Denies blood in vomitus, stools, or per rectum. Denies black, tarry stools. Denies constipation. GENITOURINARY: Denies difficulty urinating, painful urination, burning, f requency, blood in urine, or discharge. FEMALE GENITOURINARY: Denies vaginal bleeding, heavy or abnormal periods, irregular periods. Denies vaginal discharge or odor. MUSCULOSKELETAL: Denies back or neck pain or stiffness. Denies joint pain or swelling. SKIN: Superficial lacerations to feet. denies rash, lesions or sores. HEMATOLOGIC : Denies easy bruising or bleeding. LYMPHATIC: Denies swollen, enlarged glands. NEUROLOGICAL: Denies confusion or altered mental status. Denies passing out or loss of consciousness. Denies dizziness or lightheadedness. Denies headache. Denies weakness or paralysis or loss of use of either side. Denies problems with gait or speech. Denies sensory loss, numbness, or tingling. Denies seizures. PSYCHIATRIC: Denies anxiety or stress. Denies depression, suicidal ideation, or homicidal ideation. ALL OTHER SYSTEMS REVIEWED AND NEGATIVE. PHYSICAL EXAMINATION: GENERAL: Well-appearing, well-nourished and in no acute distress. HEAD: Atraumatic, normocephalic. EYES: Pupils equal round and reactive to light, extraocular movements intact, conjunctiva are normal. ENT: Nares patent, oropharynx clear without exudates. Moist mucous membranes. NECK: Normal range of motion, supple without lymphadenopathy LUNGS: Breath sounds clear to auscultation bilaterally and equal. No wheezes rales or rhonchi. HEART: Regular rate and rhythm without murmurs ABDOMEN: Soft, nontender, nondistended abdomen. No guarding, no rebound. No masses appreciated. Female : deferred Musculoskeletal: Normal range of motion, no pitting or edema. No cyanosis. NEUROLOGICAL: Cranial nerves grossly intact. Normal speech, normal gait. Normal sensory, motor exams PSYCH: Normal mood, normal affect. SKIN: Warm, Dry, normal turgor, no rashes or lesions noted. Bilateral multiple superficial abrasions to right lower extremity, superficial lacerations to right foot. No laceration is deep enough for suturing. Distal pulses +2 bilaterally and equally. squeeze test negative. dtr +2 BLE. Limited APROM. full motor and sensory function. No vascular compromise. Ankle exam within normal limits. Dictation was performed using [employer] voice recognition software - REPRODUCTIVE Reproductive: DENIES: : Past Medical History - General Information source: Patient - Social History Smoking Status: Never Smoker Frequency of alcohol use: Rare Drug Abuse: None Family History: Reviewed & Not Pertinent, Arthritis, CAD, CVA, DM, Hyperlipidemia, Hypertension, Malignancy, Thyroid Disfunction Patient has homicidal ideation: No - Past Medical History Cardiac Medical History: Denies: Hx Coronary Artery Disease, Hx Heart Attack, Hx Hypertension Pulmonary Medical History: Reports: Hx Asthma Denies: Hx Bronchitis, Hx COPD, Hx Pneumonia Neurological Medical History: Denies: Hx Cerebrovascular Accident, Hx Seizures Endocrine Medical History: Reports: Hx Diabetes Mellitus Type 2, Hx Hypothyroidism Renal/ Medical History: Denies: Hx Peritoneal Dialysis Musculoskeletal Medical History: Denies Hx Arthritis Skin Medical History: Reports Hx Cellulitis, Reports Hx MRSA Psychiatric Medical History: Reports: Hx Depression Infectious Medical History: Reports: Hx MRSA Past Surgical History: Reports: Hx Adenoidectomy, Hx Cholecystectomy, Hx To nsillectomy - Immunizations Immunizations up to date: Yes Hx Diphtheria, Pertussis, Tetanus Vaccination: Yes Vertical Provider Document - CONSTITUTIONAL Agree With Documented VS: Yes Exam Limitations: No Limitations General Appearance: WD/WN - INFECTION CONTROL TRAVEL OUTSIDE OF THE [place] IN LAST 30 DAYS: No Course - Re-evaluation Re-evalutation: 01/08/20 21:47 Afebrile, patient in pain so slightly tachycardic presents via EMS for oyster bed superficial lacerations to her bilateral feet and legs. On repeat e valuation her heart rate normalized, on further evaluation of patient on examination, patient did sustain superficial abrasions to her skin, there are no deep lacerations that require any suturing. Due to the fact that the patient was exposed to ocean water with open wound, we will update her tetanus today as well as put her on prophylactic ciprofloxacin. After performing a Medical Screening Examination, I estimate there is LOW risk for OPEN FRACTURE, COMPARTMENT SYNDROME, TENDON RUPTURE, ACUTE NEUROVASCULAR INJURY, or RETAINED FOREIGN BODY, thus I consider the discharge disposition reasonable. Also, there is no evidence or peritonitis, sepsis, or toxicity. I have reevaluated this patient multiple times and no significant life threatening changes are noted. The patient and I have discussed the diagnosis and risks, and we agree with discharging home with close follow-up with the understanding that symptoms and presentations can change. We also discussed returning to the Emergency De partment immediately if new or worsening symptoms occur. We have discussed the symptoms which are most concerning (e.g., changing or worsening pain, fever, numbness, weakness, cool or painful digits) that necessitate immediate return. 01/08/20 21:52 - Vital Signs Vital signs: Temp Pulse Resp BP Pulse Ox 98.2 F 94 20 132/78 H 97 01/08/20 21:32 01/08/20 21:32 01/08/20 21:32 01/08/20 21:32 01/08/20 21:32 Discharge - Discharge Clinical Impression: superficial laceration of feet Condition: Stable Disposition: HOME, SELF-CARE Instructions: Laceration Care ([facility]), Antibiotic Ointment Protection ([facility]), Soap Cleansing ([facility]), Tetanus Immunization Given ([facility]), Prophylactic Antibiotic ([facility]) Additional Instructions: You have superficial lacerations from an oyster bed that you accidentally came in contact with today. You are being placed on ciprofloxacin antibiotic due to the fact that you are out in ocean water when you received these superficial lacerations. Wash with soap and water twice a day, alternate between Tylenol and ibuprofen for pain control. Follow-up with your primary care provider in the next 24 to 48 hours. Monitor for any signs and symptoms of infection such as redness, swelling, drainage Return immediately for any new or worsening symptoms. Follow up with primary care provider, call tomorrow to make followup appointment. Prescriptions: Ciprofloxacin HCl [Cipro 500 mg Tablet] 500 mg PO BID #20 tablet Forms: Return to Work Referrals: MARY MCCAIN FNP-C [Primary Care Provider] - Follow up as needed
[2020-01-08] MEDS ORDERED: HYDROCODONE/ACETAMINOPHEN 5-325 MG TABLET PO ONE (21:48)
[2020-01-08 23:17] VITALS: BP 124/78
== END 2020-01-08 23:18 | disposition home or self-care (01) ==
LOC: ER 20:47
DX: S80.812A Abrasion, left lower leg, initial encounter (principal); S80.811A Abrasion, right lower leg, initial encounter; S90.812A Abrasion, left foot, initial encounter; S90.811A Abrasion, right foot, initial encounter; W22.8XXA Striking against or struck by other objects, initial encounter; Y92.832 Beach as the place of occurrence of the external cause; Z23 Encounter for immunization; Z79.3 Long term (current) use of hormonal contraceptives
CPT/HCPCS: 90471; 90715; 99283

== ENCOUNTER 2020-02-12 09:58 | Emergency (ER) | payer BC ==
--- NOTE | 2020-02-12 11:30 | ER Document Report ---
ED Respiratory Problem - General Chief Complaint: Shortness Of Breath Stated Complaint: SHORTNESS OF BREATH Notes: CHIEF COMPLAINT: Shortness of breath today HPI: 24-year-old female diagnosed with COVID-19 4 days ago presenting with shortness of breath today. Patient is an asthmatic. Patient has been using her inhaler at home. Still complains of mild generalized body ache. Denies high fever. 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 ALLERGIES: I agree with the allergies as charted by the RN. PAST MEDICAL HISTORY/PAST SURGICAL HISTORY: Reviewed and agree as charted by RN. SOCIAL HISTORY: Reviewed and agree as charted by RN. FAMILY HISTORY: No significant familial comorbid conditions directly related to patient complaint EXAM: Reviewed vital signs as charted by RN. CONSTITUTIONAL: Alert and oriented and responds appropriately to questions. Well-appearing; well-nourished HEAD: Normocephalic; atraumatic EYES: PERRL; Conjunctivae clear, sclerae non-icteric ENT: normal nose; no rhinorrhea; moist mucous membranes; pharynx without lesions noted, no uvula edema or deviation, no tonsillar hypertrophy, phonation normal NECK: Supple without meningismus; non-tender; no cervical lymphadenopathy, no masses CARD: RRR; no murmurs, no clicks, no rubs, no gallops; symmetric distal pulses RESP: Normal chest excursion without splinting or tachypnea; breath sounds clear and equal bilaterally; no wheezes, no rhonchi, no rales, pulse oximetry 98% on room air not hypoxic ABD/GI: Morbidly obese, normal bowel sounds; non-distended; soft, non-tender, no rebound, no guarding; no palpable organomegaly or masses. BACK: The back appears normal and is non-tender to palpation, there is no CVA tenderness EXT: Normal ROM in all joints; non-tender to palpation; no cyanosis, no effusions, no edema SKIN: Normal color for age and race; warm; dry; good turgor; no acute lesions noted NEURO: Moves all extremities equally; Motor and sensory function intact PSYCH: The patient's mood and manner are appropriate. Grooming and personal hygiene are appropriate. MDM: 24-year-old female presenting for shortness of breath, asthma history, no wheezing at this time not hypoxic not tachypneic. Will obtain chest x-ray to evaluate for infiltrate. If chest x-ray negative will place patient on a short course of Decadron, continue albuterol, follow-up PCP with return instructions TRAVEL OUTSIDE OF THE [place] IN LAST 30 DAYS: No - Related Data Allergies/Adverse Reactions: codeine [Codeine] Adverse Reaction (Mild, Verified 01/18/19 09:21) headaches Past Medical History - Social History Smoking Status: Unknown if Ever Smoked Family History: Reviewed & Not Pertinent, Arthritis, CAD, CVA, DM, Hyperlipidemia, Hypertension, Malignancy, Thyroid Disfunction - Past Medical History Cardiac Medical History: Denies: Hx Coronary Artery Disease, Hx Heart Attack, Hx Hypertension Pulmonary Medical History: Reports: Hx Asthma Denies: Hx Bronchitis, Hx COPD, Hx Pneumonia Neurological Medical History: Denies: Hx Cerebrovascular Accident, Hx Seizures Endocrine Medical History: Reports: Hx Diabetes Mellitus Type 2, Hx Hypothyroidism Renal/ Medical History: Denies: Hx Peritoneal Dialysis Musculoskeletal Medical History: Denies Hx Arthritis Skin Medical History: Reports Hx Cellulitis, Reports Hx MRSA Psychiatric Medical History: Reports: Hx Depression Infectious Medical History: Reports: Hx MRSA Past Surgical History: Reports: Hx Adenoidectomy, Hx Cholecystectomy, Hx Tonsillectomy - Immunizations Immunizations up to date: Yes Hx Diphtheria, Pertussis, Tetanus Vaccination: Yes Physical Exam - Vital signs Vitals: Temp Pulse Resp BP Pulse Ox 98.5 F 86 16 133/79 H 99 02/12/20 10:10 02/12/20 10:10 02/12/20 10:10 02/12/20 10:10 02/12/20 10:10 Course - Re-evaluation Re-evalutation: 02/12/20 12:09 Chest x-ray on my review does not show evidence of infiltrate. Will start patient on Decadron she will continue albuterol inhaler follow-up PCP - Vital Signs Vital signs: Temp Pulse Resp BP Pulse Ox 98.5 F 86 16 133/79 H 99 02/12/20 10:10 02/12/20 10:10 02/12/20 10:10 02/12/20 10:10 02/12/20 10:10 Discharge - Discharge Clinical Impression: COVID-19 Dyspnea Qualifiers: Dyspnea type: unspecified Qualified Code(s): R06.00 - Dyspnea, unspecified Condition: Stable Disposition: HOME, SELF-CARE Additional Instructions: Continue to use your albuterol inhaler 2 puffs every 4 hours for shortness of breath. Take the Decadron as prescribed. Follow-up with your primary care provider for reevaluation of symptoms. Your chest x-ray today did not show evidence of a significant pneumonia or infiltrate. If you have worsening shortness of breath uncontrolled by her medications at home return for reevaluation Prescriptions: Dexamethasone [Decadron 4 Mg Tablet] 4 mg PO DAILY #7 tablet Referrals: ZAMZAM TORRES MD [COMMUNITY BASED STAFF] - Follow up as needed
[2020-02-12] MEDS ORDERED: DEXAMETHASONE 4 MG TABLET PO ONE (12:08)
--- NOTE | 2020-02-12 12:20 | RADIOLOGY REPORT (SQ) ---
EXAM DESCRIPTION: CHEST SINGLE VIEW IMAGES COMPLETED DATE/TIME: 02/12/2020 12:06 pm REASON FOR STUDY: shortness of breath COMPARISON: 03/21/2012. EXAM PARAMETERS: NUMBER OF VIEWS: One view. TECHNIQUE: Single frontal radiographic view of the chest acquired. RADIATION DOSE: NA LIMITATIONS: None. FINDINGS: LUNGS AND PLEURA: No opacities, masses or pneumothorax. No pleural effusion. MEDIASTINUM AND HILAR STRUCTURES: No masses. Contour normal. HEART AND VASCULAR STRUCTURES: Heart normal in size. Normal vasculature. BONES: No acute findings. HARDWARE: None in the chest. OTHER: No other significant finding. IMPRESSION: NO ACUTE RADIOGRAPHIC FINDING IN THE CHEST. TECHNICAL DOCUMENTATION: JOB ID: [id number] 2010 [employer]- All Rights Reserved Reading location - IP/workstation name: [email or web address]
[2020-02-12 13:29] VITALS: BP 131/74
== END 2020-02-12 13:31 | disposition home or self-care (01) ==
LOC: ER 09:58
DX: U07.1 COVID-19 (principal); J45.909 Unspecified asthma, uncomplicated; R06.02 Shortness of breath; R05 Cough; E11.9 Type 2 diabetes mellitus without complications; Z79.899 Other long term (current) drug therapy
CPT/HCPCS: 99283; 71045; J8540